=== PATIENT | male | born 1985 | race Two or more races ===

== ENCOUNTER 2018-03-14 02:06 | Emergency (ER) | payer SELFPAY ==
[~2018-03-14] VITALS: Ht 167.6 cm; Wt 81.6 kg
[2018-03-14] MEDS ORDERED: LACTULOSE 20Gm/30ML SOLN PO ONE (05:00)
[2018-03-14 05:46] VITALS: BP 150/99
== END 2018-03-14 05:46 | disposition home or self-care (01) ==
LOC: ER 02:06
DX: T18.0XXA Foreign body in mouth, initial encounter (principal); K59.00 Constipation, unspecified; X58.XXXA Exposure to other specified factors, initial encounter; Y93.89 Activity, other specified; Y92.89 Other specified places as the place of occurrence of the external cause; Y99.8 Other external cause status
CPT/HCPCS: 70360; 74018